=== PATIENT | female | born 1945 | race Caucasian/White ===

== ENCOUNTER 2017-04-04 16:13 | Emergency (ER) | payer MEDICARE ==
[~2017-04-04] VITALS: Ht 157.5 cm; Wt 54.5 kg
[~2017-04-04 16:13] MED LIST: ACID1GRA2 PO; ACLI400A2; ALBU8.5H5 INH; ALPR1TAB6 PO; AMOX1TAB12 PO; ASPI-621 PO; AZIT500T77 PO; BACL-19 PO; CARV3.1212 PO; FLUT1DIS3 INH; GABA300C10 PO; GUAI200T3 PO; IPRA3AMP NEB; LEVO500T33 PO; LISI40TA PO; MAGN400T26 PO; OMEP-110 PO; ONDA4TAB7 PO; OXYC-229 PO; OXYC15TA PO; POLY17PO5 PO; PRED10TA PO; SIMV10TA3 PO; TICA90TA PO; TIOT18CA INH; VANCOMYCIN PO; VERA120T5 PO
[2017-04-04] MEDS ORDERED: AMIT50TA PO (16:39)
[2017-04-04] MEDS ORDERED: HYDR25TA11 PO (16:39)
[2017-04-04] MEDS ORDERED: MOME13HF2 INH (16:39)
[2017-04-04] MEDS ORDERED: LISI40TA PO (16:39)
[2017-04-04] MEDS ORDERED: ALBUTEROL/IPRATROPIUM 2.5MG/0.5MG, 3 ML ONE (16:51)
[2017-04-04] MEDS ORDERED: MORPHINE SULFATE 4 MG/ML, 1ML ONE ×2 (16:54→19:07)
[2017-04-04] MEDS ORDERED: methylPREDNISolone SOD SUCC 125 MG/2 ML ONE (16:54)
[2017-04-04] MEDS: MORPHINE SULFATE 4 MG/ML, 1ML IVPush PRN ×2 (16:58→19:10)
[2017-04-04] MEDS ORDERED: ALBUTEROL/IPRATROPIUM 2.5MG/0.5MG, 3 ML NPPB ONE (17:00)
[2017-04-04] MEDS ORDERED: SODIUM CHLORIDE 0.9% 1,000ML IVBOLUS ONE (17:00)
[2017-04-04] MEDS ORDERED: SODIUM CHLORIDE FLUSH 10ML SYR IVF ONE (17:00)
[2017-04-04] MEDS ORDERED: methylPREDNISolone SOD SUCC 125 MG/2 ML IVP ONE (17:00)
[2017-04-04] MEDS ORDERED: CEFTRIAXONE PMX 1GM/50ML 50 ML ONE (17:28)
[2017-04-04 17:29] LABS: BLOOD UREA NITROGEN 14 mg/dL (7-18)
[2017-04-04] MEDS ORDERED: AZITHROMYCIN 500 MG in SODIUM CHLORIDE 0.9% 250 ML IV ONE (17:30)
[2017-04-04] MEDS ORDERED: CEFTRIAXONE 1,000 MG in SODIUM CHLORIDE 0.9% 50 ML IV ONE (17:30)
[2017-04-04 17:35] LABS: ASPARTATE AMINO TRANSFERASE 9 U/L (15-37); IS PT STATUS REG ER OR PRE ER? YES
[2017-04-04] MEDS ORDERED: CEFTRIAXONE PMX 1GM/50ML 50 ML IV ONE (18:00)
[2017-04-04 19:44] VITALS: BP 148/52
[2017-04-04] MEDS ORDERED: OMNIPAQUE 350 MG/ML, 100ML BOTTLE ONE (19:49)
== END 2017-04-04 23:07 | disposition home or self-care (01) ==
LOC: ED 22:55
DX: J15.9 Unspecified bacterial pneumonia (principal); J44.1 Chronic obstructive pulmonary disease with (acute) exacerbation; F11.10 Opioid abuse, uncomplicated; E78.5 Hyperlipidemia, unspecified; I10 Essential (primary) hypertension; F17.210 Nicotine dependence, cigarettes, uncomplicated
CPT/HCPCS: 36415; 71010; 71275; 80053; 83605; 83880; 84484; 85025; 85610; 85730; 87040; 93005; 94640; 96361; 96365; 96366; 96368; 96375; 99285; J0456; J0696; J2930; J7030; J7050; Q9967; J7620

== ENCOUNTER 2017-05-31 19:26 | Inpatient (IN) | payer MEDICARE ==
[~2017-05-31] VITALS: Ht 167.6 cm; Wt 51.3 kg
[~2017-05-31 19:26] MED LIST changes: +AMIT50TA PO; +HYDR25TA11 PO; +MOME13HF2 INH
[2017-05-31] MEDS ORDERED: SODIUM CHLORIDE 0.9% 1,000ML IVBOLUS ONE (20:00)
[2017-05-31] MEDS ORDERED: SODIUM CHLORIDE FLUSH 10ML SYR IVF ONE (20:00)
[2017-05-31] MEDS ORDERED: FAMOTIDINE 20 MG/2 ML IVP ONE (20:00)
[2017-05-31 20:15] LABS: HEMATOCRIT 30.4 % (34.6-47.8); WHITE BLOOD COUNT 9.7 x10^3/uL (3.4-10)
[2017-05-31] MEDS ORDERED: FAMOTIDINE 20 MG/2 ML ONE (20:15)
[2017-05-31 20:23] LABS: ASPARTATE AMINO TRANSFERASE 15 U/L (15-37); BLOOD UREA NITROGEN 14 mg/dL (7-18)
[2017-05-31] MEDS ORDERED: OMNIPAQUE 350 MG/ML, 100ML BOTTLE ONE (21:21)
[2017-06-01] MEDS ORDERED: [UNRECOGNIZED DRUG - OTHER] INH PRN
[2017-06-01] MEDS ORDERED: MOMETASONE INH PRN
[2017-06-01] MEDS ORDERED: POLYETHYLENE GLYCOL 17 GM PACKET PO PRN
[2017-06-01] MEDS ORDERED: FORMOTEROL INH PRN
[2017-06-01] MEDS ORDERED: BISACODYL 10 MG SUPP PR PRN
[2017-06-01] MEDS ORDERED: ACETAMINOPHEN 325 MG TABLET PO PRN
[2017-06-01 00:13] VITALS: BP 170/77
[2017-06-01] MEDS: ONDANSETRON 2MG/ML, 2ML IVPush PRN ×2 (00:16→07:18)
[2017-06-01] MEDS: NICOTINE 21 MG/24 HR PATCH.TD24 TD SCH (00:43)
[2017-06-01] MEDS: CARVEDILOL 3.125 MG TABLET PO SCH ×3 (00:44→21:05)
[2017-06-01] MEDS: AMITRIPTYLINE 50 MG TABLET PO SCH ×2 (00:44→21:05)
[2017-06-01] MEDS: LISINOPRIL 20 MG TABLET PO SCH ×3 (00:44→21:05)
[2017-06-01] MEDS: SIMVASTATIN 40 MG TABLET PO SCH ×2 (00:44→21:07)
[2017-06-01] MEDS: HEPARIN 5,000 UNITS/ML, 1ML SQ SCH ×3 (00:45→16:57)
[2017-06-01] MEDS: SODIUM CHLORIDE FLUSH 10ML SYR IVF SCH ×3 (00:53→21:05)
[2017-06-01] MEDS: morphine SULFATE 10 MG/ML, 1ML IVPush PRN ×3 (00:53→08:37)
[2017-06-01 02:43] VITALS: BP 171/79
[2017-06-01] MEDS ORDERED: ALBUTEROL/IPRATROPIUM 2.5MG/0.5MG, 3 ML NPPB PRN (03:00)
[2017-06-01 06:08] LABS: HEMATOCRIT 32.2 % (34.6-47.8); HEMOGLOBIN 10.6 g/dL (11.7-16.4)
[2017-06-01 06:25] LABS: ASPARTATE AMINO TRANSFERASE 15 U/L (15-37); BLOOD UREA NITROGEN 11 mg/dL (7-18)
[2017-06-01 08:00] VITALS: BP 159/81
[2017-06-01] MEDS: ALBUTEROL/IPRATROPIUM 2.5MG/0.5MG, 3 ML NPPB SCH ×2 (09:00→21:00)
[2017-06-01] MEDS: SENNA/DOCUSATE TABLET PO SCH (09:26)
[2017-06-01] MEDS: ASPIRIN 81 MG TABLET EC PO SCH (09:27)
[2017-06-01] MEDS: CEFTRIAXONE PMX 2GM/50ML 50 ML IV SCH (12:25)
[2017-06-01] MEDS: KETOROLAC 30 MG/1 ML IVPush PRN ×2 (12:25→18:16)
[2017-06-01] MEDS: ONDANSETRON 2MG/ML, 2ML IVPush SCH ×2 (12:26→16:57)
[2017-06-01 15:17] VITALS: BP 175/83
[2017-06-01] MEDS: HYDROmorphone 1 MG/ML, 1ML IV PRN ×2 (15:28→21:56)
[2017-06-01 19:35] VITALS: BP 151/83
[2017-06-02] MEDS: HEPARIN 5,000 UNITS/ML, 1ML SQ SCH ×4 (00:19→23:20)
[2017-06-02] MEDS: ONDANSETRON 2MG/ML, 2ML IVPush SCH ×4 (00:20→20:54)
[2017-06-02] MEDS: NICOTINE 21 MG/24 HR PATCH.TD24 TD SCH ×2 (00:20→23:20)
[2017-06-02] MEDS: KETOROLAC 30 MG/1 ML IVPush PRN ×2 (00:20→05:25)
[2017-06-02 01:24] VITALS: BP 145/80
[2017-06-02 05:09] LABS: HEMATOCRIT 38.2 % (34.6-47.8); HEMOGLOBIN 12.4 g/dL (11.7-16.4); WHITE BLOOD COUNT 11.4 x10^3/uL (3.4-10)
[2017-06-02 05:21] LABS: BLOOD UREA NITROGEN 24 mg/dL (7-18)
[2017-06-02 07:06] VITALS: BP 139/78
[2017-06-02] MEDS: SENNA/DOCUSATE TABLET PO SCH (08:13)
[2017-06-02] MEDS: LISINOPRIL 20 MG TABLET PO SCH ×2 (08:14→20:53)
[2017-06-02] MEDS: ASPIRIN 81 MG TABLET EC PO SCH (08:14)
[2017-06-02] MEDS: CARVEDILOL 3.125 MG TABLET PO SCH ×2 (08:14→20:53)
[2017-06-02] MEDS: HYDROmorphone 1 MG/ML, 1ML IV PRN ×2 (08:14→23:21)
[2017-06-02] MEDS: SODIUM CHLORIDE FLUSH 10ML SYR IVF SCH ×2 (08:18→20:54)
[2017-06-02] MEDS: ALBUTEROL/IPRATROPIUM 2.5MG/0.5MG, 3 ML NPPB SCH ×2 (09:28→19:20)
[2017-06-02] MEDS ORDERED: BISACODYL 10 MG SUPP PR SCH (10:30)
[2017-06-02] MEDS: LORazepam 0.5MG TABLET PO PRN ×2 (12:54→20:53)
[2017-06-02] MEDS: SODIUM CHLORIDE 0.9% 1,000 ML IV SCH ×2 (12:55→20:54)
[2017-06-02] MEDS: CEFTRIAXONE PMX 2GM/50ML 50 ML IV SCH (12:55)
[2017-06-02 16:00] VITALS: BP 135/66
[2017-06-02] MEDS: PROMETHAZINE 12.5 MG SUPP PR PRN (17:15)
[2017-06-02 19:56] VITALS: BP 116/66
[2017-06-02] MEDS: AMITRIPTYLINE 50 MG TABLET PO SCH (20:53)
[2017-06-02] MEDS: SIMVASTATIN 40 MG TABLET PO SCH (20:53)
[2017-06-03] MEDS: ONDANSETRON 2MG/ML, 2ML IVPush SCH ×2 (01:45→08:57)
[2017-06-03 02:50] VITALS: BP 164/82
[2017-06-03] MEDS: HYDROmorphone 1 MG/ML, 1ML IV PRN ×2 (02:54→06:03)
[2017-06-03] MEDS: SODIUM CHLORIDE 0.9% 1,000 ML IV SCH ×2 (04:00→15:14)
[2017-06-03 05:49] LABS: BLOOD UREA NITROGEN 22 mg/dL (7-18)
[2017-06-03 05:57] LABS: HEMATOCRIT 30.5 % (34.6-47.8); WHITE BLOOD COUNT 9.2 x10^3/uL (3.4-10)
[2017-06-03 08:00] VITALS: BP 150/75
[2017-06-03] MEDS: HEPARIN 5,000 UNITS/ML, 1ML SQ SCH (08:55)
[2017-06-03] MEDS: CARVEDILOL 3.125 MG TABLET PO SCH (08:55)
[2017-06-03] MEDS: LORazepam 0.5MG TABLET PO PRN (08:56)
[2017-06-03] MEDS: LISINOPRIL 20 MG TABLET PO SCH (08:56)
[2017-06-03] MEDS: ASPIRIN 81 MG TABLET EC PO SCH (08:56)
[2017-06-03] MEDS: SENNA/DOCUSATE TABLET PO SCH (08:56)
[2017-06-03] MEDS: SODIUM CHLORIDE FLUSH 10ML SYR IVF SCH (08:57)
[2017-06-03] MEDS: ALBUTEROL/IPRATROPIUM 2.5MG/0.5MG, 3 ML NPPB SCH (09:15)
[2017-06-03] MEDS ORDERED: ONDANSETRON ODT 4 MG PO PRN (09:30)
[2017-06-03] MEDS ORDERED: HYDROcodone/APAP 5/325 TABLET PO PRN (09:30)
[2017-06-03 14:45] VITALS: BP 152/84
[2017-06-03] MEDS: PROMETHAZINE 12.5 MG SUPP PR PRN (15:14)
[2017-06-03] MEDS ORDERED: NICO1PAT5 TD (15:34)
[2017-06-03] MEDS ORDERED: ONDA4TAB13 PO (16:13)
[2017-06-03] MEDS ORDERED: HYDR-3240 PO (16:13)
== END 2017-06-03 17:21 | disposition home or self-care (01) | DRG 393 ==
LOC: ED 23:00 → EDIP 23:07 → 3NE 06-01
DX: K55.9 Vascular disorder of intestine, unspecified (principal); N17.0 Acute kidney failure with tubular necrosis; J96.10 Chronic respiratory failure, unspecified whether with hypoxia or hypercapnia; E44.1 Mild protein-calorie malnutrition; E87.1 Hypo-osmolality and hyponatremia; Z68.1 Body mass index [BMI] 19.9 or less, adult; J84.10 Pulmonary fibrosis, unspecified; J44.9 Chronic obstructive pulmonary disease, unspecified; D64.9 Anemia, unspecified; E78.5 Hyperlipidemia, unspecified; F17.210 Nicotine dependence, cigarettes, uncomplicated; F41.9 Anxiety disorder, unspecified; G89.29 Other chronic pain; I10 Essential (primary) hypertension; I70.0 Atherosclerosis of aorta; I73.9 Peripheral vascular disease, unspecified; K59.00 Constipation, unspecified; M19.90 Unspecified osteoarthritis, unspecified site; I25.2 Old myocardial infarction; Z90.710 Acquired absence of both cervix and uterus; Z71.6 Tobacco abuse counseling; Z86.19 Personal history of other infectious and parasitic diseases; Z86.79 Personal history of other diseases of the circulatory system; Z80.9 Family history of malignant neoplasm, unspecified
CPT/HCPCS: 36415; 74177; 74181; 76770; 80048; 80053; 80061; 81001; 83690; 85025; 85610; 85730; 87040; 87086; 93922; 93925; 94640; 96361; 96374; J0696; J1170; J1644; J1885; J2405; J7620; Q9967; J2270; J7030; Q0177; S0028

== ENCOUNTER 2017-07-21 12:36 | Inpatient (IN) | payer MEDICARE ==
[~2017-07-21] VITALS: Ht 157.5 cm; Wt 53.0 kg
[~2017-07-21 12:36] MED LIST changes: -ACID1GRA2 PO; +ACID1GRA3 PO; +AZIT500T5 PO; -AZIT500T77 PO; +HYDR-3240 PO; -LEVO500T33 PO; +LEVO500T47 PO; +NICO-487 TD; +ONDA4TAB13 PO; -OXYC-229 PO; +OXYC-307 PO
[2017-07-21] MEDS ORDERED: SODIUM CHLORIDE FLUSH 10ML SYR IVF ONE (13:00)
[2017-07-21] MEDS ORDERED: NITROGLYCERIN SINGLE TAB 0.4 MG SL PRN (13:00)
[2017-07-21] MEDS ORDERED: NITROGLYCERIN SINGLE TAB 0.4 MG SL ONE (13:01)
[2017-07-21 13:14] LABS: HEMATOCRIT 33.6 % (34.6-47.8); HEMOGLOBIN 11.1 g/dL (11.7-16.4); WHITE BLOOD COUNT 11.2 x10^3/uL (3.4-10)
[2017-07-21 13:23] LABS: BLOOD UREA NITROGEN 12 mg/dL (7-18)
[2017-07-21 13:28] LABS: IS PT STATUS REG ER OR PRE ER? YES
[2017-07-21] MEDS ORDERED: predniSONE 50MG TABLET PO STA (13:32)
[2017-07-21] MEDS ORDERED: NITROGLYCERIN OINT 2%, 1GM TP ONE ×2 (13:53→14:00)
[2017-07-21] MEDS ORDERED: LABETALOL 5MG/ML, 20ML IVPush PRN (14:30)
[2017-07-21] MEDS ORDERED: LORazepam 0.5MG TABLET PO PRN (14:30)
[2017-07-21] MEDS ORDERED: FLUTICASONE/VILANTEROL 100-25MCG/INH INH PRN (14:30)
[2017-07-21] MEDS ORDERED: ONDANSETRON ODT 4 MG PO PRN (14:30)
[2017-07-21] MEDS ORDERED: ONDANSETRON 2MG/ML, 2ML IVPush PRN (14:30)
[2017-07-21] MEDS ORDERED: POLYETHYLENE GLYCOL 17 GM PACKET PO PRN (14:30)
[2017-07-21] MEDS ORDERED: morphine SULFATE 10 MG/ML, 1ML IVPush PRN (14:30)
[2017-07-21] MEDS ORDERED: DOCUSATE 100 MG CAPSULE PO PRN (14:30)
[2017-07-21] MEDS ORDERED: BISACODYL 10 MG SUPP PR PRN (14:30)
[2017-07-21] MEDS ORDERED: ACETAMINOPHEN 325 MG TABLET PO PRN (14:30)
[2017-07-21 15:36] VITALS: BP 175/80
[2017-07-21] MEDS ORDERED: MAGNESIUM SULFATE PMX 4GM/100M 100 ML IV ONE (16:30)
[2017-07-21] MEDS: SODIUM CHLORIDE 0.9% 1,000 ML IV SCH (17:16)
[2017-07-21 17:20] LABS: PATH.CAST-FLAG NOT PRESENT; SPERM-FLAG NOT PRESENT; SRC-FLAG NOT PRESENT; XTAL-FLAG NOT PRESENT; YLC-FLAG NOT PRESENT
[2017-07-21] MEDS: GUAIFENESIN/DM 200-20MG, 10ML UDC PO PRN (17:24)
[2017-07-21 17:25] VITALS: BP 169/75
[2017-07-21] MEDS: ENOXAPARIN 40 MG/0.4 ML SQ SCH (17:25)
[2017-07-21] MEDS ORDERED: CARV12.543 PO (18:10)
[2017-07-21] MEDS ORDERED: FLU VACC QS2017-18 (36MOS+) UP/PF 0.5 ML IM-VACC ONE (19:00)
[2017-07-21 19:39] VITALS: BP 109/62
[2017-07-21 19:52] LABS: IS PT STATUS REG ER OR PRE ER? NO
[2017-07-21] MEDS: methylPREDNISolone SOD SUCC 125 MG/2 ML IVPush SCH (20:09)
[2017-07-21] MEDS: CARVEDILOL 3.125 MG TABLET PO SCH (20:09)
[2017-07-21] MEDS: AMITRIPTYLINE 50 MG TABLET PO SCH (20:10)
[2017-07-21] MEDS: DOXYCYCLINE 100MG TABLET PO SCH (20:11)
[2017-07-21] MEDS: LISINOPRIL 20 MG TABLET PO SCH (20:11)
[2017-07-21] MEDS: SIMVASTATIN 40 MG TABLET PO SCH (20:12)
[2017-07-21] MEDS: ALBUTEROL/IPRATROPIUM 2.5MG/0.5MG, 3 ML NPPB SCH (22:30)
[2017-07-22 01:30] VITALS: BP 145/67
[2017-07-22 01:49] LABS: IS PT STATUS REG ER OR PRE ER? NO
[2017-07-22] MEDS: methylPREDNISolone SOD SUCC 125 MG/2 ML IVPush SCH ×3 (01:58→17:43)
[2017-07-22] MEDS: SODIUM CHLORIDE 0.9% 1,000 ML IV SCH (03:32)
[2017-07-22 05:53] LABS: HEMATOCRIT 33.5 % (34.6-47.8); HEMOGLOBIN 11.3 g/dL (11.7-16.4); WHITE BLOOD COUNT 6.8 x10^3/uL (3.4-10)
[2017-07-22 06:09] LABS: BLOOD UREA NITROGEN 17 mg/dL (7-18)
[2017-07-22 07:00] VITALS: BP 176/67
[2017-07-22] MEDS: ALBUTEROL/IPRATROPIUM 2.5MG/0.5MG, 3 ML NPPB SCH ×4 (08:00→19:35)
[2017-07-22] MEDS: GUAIFENESIN/DM 200-20MG, 10ML UDC PO PRN ×2 (09:02→20:08)
[2017-07-22] MEDS: LISINOPRIL 20 MG TABLET PO SCH ×3 (09:04→20:10)
[2017-07-22] MEDS: DOXYCYCLINE 100MG TABLET PO SCH ×2 (09:04→20:07)
[2017-07-22] MEDS: CARVEDILOL 3.125 MG TABLET PO SCH ×2 (09:04→20:07)
[2017-07-22] MEDS: ASPIRIN 81 MG TABLET EC PO SCH (09:06)
[2017-07-22] MEDS ORDERED: OXYC15TA PO (11:30)
[2017-07-22] MEDS: OXYcodone IR 5MG TABLET PO PRN (12:01)
[2017-07-22 14:12] VITALS: BP 142/64
[2017-07-22] MEDS: ENOXAPARIN 40 MG/0.4 ML SQ SCH (14:19)
[2017-07-22 19:11] VITALS: BP 134/61
[2017-07-22] MEDS: AMITRIPTYLINE 50 MG TABLET PO SCH (20:07)
[2017-07-22] MEDS: SIMVASTATIN 40 MG TABLET PO SCH (20:08)
[2017-07-23] MEDS: methylPREDNISolone SOD SUCC 125 MG/2 ML IVPush SCH ×2 (00:38→09:00)
[2017-07-23 02:00] VITALS: BP 131/61
[2017-07-23 06:45] VITALS: BP 153/72
[2017-07-23] MEDS: OXYcodone IR 5MG TABLET PO PRN (06:53)
[2017-07-23] MEDS: ALBUTEROL/IPRATROPIUM 2.5MG/0.5MG, 3 ML NPPB SCH (07:45)
[2017-07-23] MEDS: CARVEDILOL 3.125 MG TABLET PO SCH (09:00)
[2017-07-23] MEDS: ASPIRIN 81 MG TABLET EC PO SCH (09:00)
[2017-07-23] MEDS: DOXYCYCLINE 100MG TABLET PO SCH (09:00)
[2017-07-23] MEDS ORDERED: DOXY100T PO (09:20)
== END 2017-07-23 13:24 | disposition home or self-care (01) | DRG 189 ==
LOC: ED 13:31 → EDIP 13:32 → ED 13:42 → 5SO 15:31
PROVIDERS: ADMIT Hospitalist; ATTEND Hospitalist
DX: J96.21 Acute and chronic respiratory failure with hypoxia (principal); J44.1 Chronic obstructive pulmonary disease with (acute) exacerbation; J84.10 Pulmonary fibrosis, unspecified; Z99.81 Dependence on supplemental oxygen; D64.9 Anemia, unspecified; I10 Essential (primary) hypertension; E78.5 Hyperlipidemia, unspecified; F17.200 Nicotine dependence, unspecified, uncomplicated; I25.2 Old myocardial infarction; I73.9 Peripheral vascular disease, unspecified; M19.90 Unspecified osteoarthritis, unspecified site; Z79.82 Long term (current) use of aspirin; Z86.19 Personal history of other infectious and parasitic diseases; Z87.01 Personal history of pneumonia (recurrent); G89.29 Other chronic pain; Z90.710 Acquired absence of both cervix and uterus
CPT/HCPCS: 36415; 71010; 80048; 81001; 82040; 83735; 84100; 84145; 84484; 85025; 87086; 90686; 93005; 93306; 94640; 99285; J1650; J7620; J2270; J2930; J3475; J7030; J7512; Q0177

== ENCOUNTER 2017-08-05 13:13 | Inpatient (IN) | payer MEDICARE ==
[~2017-08-05] VITALS: Ht 165.6 cm; Wt 50.2 kg
[~2017-08-05 13:13] MED LIST changes: +CARV12.543 PO; +DOXY100T PO
[2017-08-05] MEDS ORDERED: SODIUM CHLORIDE FLUSH 10ML SYR IVF ONE (13:30)
[2017-08-05 14:26] LABS: HEMATOCRIT 33.1 % (34.6-47.8); HEMOGLOBIN 10.8 g/dL (11.7-16.4)
[2017-08-05 14:59] LABS: BLOOD UREA NITROGEN 17 mg/dL (7-18)
[2017-08-05 15:06] LABS: IS PT STATUS REG ER OR PRE ER? YES
[2017-08-05] MEDS ORDERED: NS + 20MEQ KCL 1,000 ML IV SCH (15:24)
[2017-08-05] MEDS ORDERED: LORazepam 1MG TABLET PO PRN (15:30)
[2017-08-05] MEDS ORDERED: morphine SULFATE 10 MG/ML, 1ML IVPush PRN (15:30)
[2017-08-05] MEDS ORDERED: ONDANSETRON ODT 4 MG PO PRN (15:30)
[2017-08-05] MEDS ORDERED: MOMETASONE INH PRN (15:30)
[2017-08-05] MEDS ORDERED: TEMPLATE NON-FORMULARY MED. (Albuterol Sulfate** (Albuterol Sulfate Hfa**) 2 PUFF(S)) INH PRN (15:30)
[2017-08-05] MEDS ORDERED: GUAIFENESIN/DM 200-20MG, 10ML UDC PO PRN (15:30)
[2017-08-05] MEDS ORDERED: ACETAMINOPHEN 325 MG TABLET PO PRN (15:30)
[2017-08-05] MEDS ORDERED: FORMOTEROL INH PRN (15:30)
[2017-08-05] MEDS ORDERED: POLYETHYLENE GLYCOL 17 GM PACKET PO PRN (15:30)
[2017-08-05] MEDS ORDERED: [UNRECOGNIZED DRUG - OTHER] INH PRN (15:30)
[2017-08-05] MEDS ORDERED: ALBUTEROL/IPRATROPIUM 2.5MG/0.5MG, 3 ML NEB SCH (15:30)
[2017-08-05] MEDS ORDERED: DOCUSATE 100 MG CAPSULE PO PRN (15:30)
[2017-08-05] MEDS ORDERED: HYDROcodone/APAP 5/325 TABLET PO PRN ×2 (15:30)
[2017-08-05] MEDS ORDERED: ONDANSETRON 2MG/ML, 2ML IVPush PRN (15:30)
[2017-08-05] MEDS ORDERED: ALBUTEROL/IPRATROPIUM 2.5MG/0.5MG, 3 ML ONE (15:46)
[2017-08-05] MEDS ORDERED: ALBUTEROL/IPRATROPIUM 2.5MG/0.5MG, 3 ML NPPB PRN (16:00)
[2017-08-05] MEDS: OXYcodone IR 5MG TABLET PO PRN (18:24)
[2017-08-05] MEDS: ENOXAPARIN 40 MG/0.4 ML SQ SCH (18:24)
[2017-08-05 18:37] VITALS: BP 142/70
[2017-08-05] MEDS: AMITRIPTYLINE 50 MG TABLET PO SCH (21:06)
[2017-08-05] MEDS: CARVEDILOL 12.5 MG TABLET PO SCH (21:06)
[2017-08-05] MEDS: LISINOPRIL 20 MG TABLET PO SCH (21:06)
[2017-08-05] MEDS: FAMOTIDINE 20 MG TABLET PO SCH (21:07)
[2017-08-05] MEDS: SIMVASTATIN 10 MG TABLET PO SCH (21:07)
[2017-08-05] MEDS: DOXYCYCLINE 100 MG in DEXTROSE 5% 250 ML IV SCH ×2 (21:08→23:55)
[2017-08-05] MEDS: methylPREDNISolone SOD SUCC 125 MG/2 ML IVPush SCH (21:08)
[2017-08-05] MEDS: ALBUTEROL/IPRATROPIUM 2.5MG/0.5MG, 3 ML NPPB SCH (22:08)
[2017-08-05] MEDS: CEFTRIAXONE PMX 1GM/50ML 50 ML IV SCH (22:31)
[2017-08-06 02:39] VITALS: BP 116/65
[2017-08-06] MEDS: methylPREDNISolone SOD SUCC 125 MG/2 ML IVPush SCH ×3 (05:50→21:02)
[2017-08-06 06:12] LABS: BLOOD UREA NITROGEN 20 mg/dL (7-18)
[2017-08-06 06:16] LABS: HEMATOCRIT 28.6 % (34.6-47.8); HEMOGLOBIN 9.6 g/dL (11.7-16.4); WHITE BLOOD COUNT 7.3 x10^3/uL (3.4-10)
[2017-08-06 06:58] VITALS: BP 146/67
[2017-08-06] MEDS: ALBUTEROL/IPRATROPIUM 2.5MG/0.5MG, 3 ML NPPB SCH ×5 (07:33→22:00)
[2017-08-06] MEDS: SENNA/DOCUSATE TABLET PO SCH (09:00)
[2017-08-06] MEDS: FAMOTIDINE 20 MG TABLET PO SCH ×2 (09:09→21:01)
[2017-08-06] MEDS: CARVEDILOL 12.5 MG TABLET PO SCH ×2 (09:10→21:02)
[2017-08-06] MEDS: ASPIRIN 81 MG TABLET EC PO SCH (09:10)
[2017-08-06] MEDS: LISINOPRIL 20 MG TABLET PO SCH (09:10)
[2017-08-06] MEDS: DOXYCYCLINE 100 MG in DEXTROSE 5% 250 ML IV SCH ×2 (11:44→23:23)
[2017-08-06] MEDS: OXYcodone IR 5MG TABLET PO PRN ×2 (13:37→21:02)
[2017-08-06] MEDS ORDERED: GUAIFENESIN/DM 100-10MG, 5ML UDC PO PRN (14:00)
[2017-08-06 14:14] VITALS: BP 169/80
[2017-08-06 14:43] VITALS: BP 193/80
[2017-08-06] MEDS ORDERED: hydrALAzine 20 MG/ML, 1ML IV PRN ×2 (15:00→21:00)
[2017-08-06] MEDS: AMLODIPINE 5 MG TABLET PO SCH ×2 (15:00→21:00)
[2017-08-06] MEDS: LACTOBACILLUS CHEW TABLET PO SCH ×2 (17:52→21:01)
[2017-08-06] MEDS: ENOXAPARIN 40 MG/0.4 ML SQ SCH (17:52)
[2017-08-06 18:25] VITALS: BP 167/70
[2017-08-06] MEDS ORDERED: ACETAMINOPHEN 325 MG TABLET PO PRN (21:00)
[2017-08-06] MEDS ORDERED: DOCUSATE 100 MG CAPSULE PO PRN (21:00)
[2017-08-06] MEDS ORDERED: ONDANSETRON ODT 4 MG PO PRN (21:00)
[2017-08-06] MEDS ORDERED: ONDANSETRON 2MG/ML, 2ML IVPush PRN (21:00)
[2017-08-06] MEDS ORDERED: POLYETHYLENE GLYCOL 17 GM PACKET PO PRN (21:00)
[2017-08-06] MEDS: SIMVASTATIN 10 MG TABLET PO SCH (21:00)
[2017-08-06] MEDS: AMITRIPTYLINE 50 MG TABLET PO SCH (21:02)
[2017-08-06] MEDS: CEFTRIAXONE PMX 1GM/50ML 50 ML IV SCH (22:31)
[2017-08-07 02:00] VITALS: BP 119/67
[2017-08-07] MEDS: methylPREDNISolone SOD SUCC 125 MG/2 ML IVPush SCH ×3 (05:00→21:21)
[2017-08-07 06:22] LABS: HEMATOCRIT 30.9 % (34.6-47.8); HEMOGLOBIN 10.3 g/dL (11.7-16.4)
[2017-08-07 06:34] LABS: BLOOD UREA NITROGEN 23 mg/dL (7-18)
[2017-08-07] MEDS: ALBUTEROL/IPRATROPIUM 2.5MG/0.5MG, 3 ML NPPB SCH ×5 (07:30→22:00)
[2017-08-07] MEDS ORDERED: MAGNESIUM SULFATE PMX 2GM/50ML 50 ML IV ONE (08:00)
[2017-08-07 08:38] VITALS: BP 130/71
[2017-08-07] MEDS: SENNA/DOCUSATE TABLET PO SCH (09:00)
[2017-08-07] MEDS: LACTOBACILLUS CHEW TABLET PO SCH ×3 (10:04→21:22)
[2017-08-07] MEDS: CARVEDILOL 12.5 MG TABLET PO SCH ×2 (10:04→21:23)
[2017-08-07] MEDS: ASPIRIN 81 MG TABLET EC PO SCH (10:04)
[2017-08-07] MEDS: AMLODIPINE 5 MG TABLET PO SCH ×2 (10:04→21:00)
[2017-08-07] MEDS: FAMOTIDINE 20 MG TABLET PO SCH ×2 (10:04→21:22)
[2017-08-07] MEDS: LISINOPRIL 20 MG TABLET PO SCH (10:05)
[2017-08-07] MEDS: MAGNESIUM CHLORIDE 64 MG TABLET.DR PO SCH ×2 (10:05→21:22)
[2017-08-07] MEDS: DOXYCYCLINE 100 MG in DEXTROSE 5% 250 ML IV SCH (12:32)
[2017-08-07 13:14] VITALS: BP 135/67
[2017-08-07] MEDS: OXYcodone IR 5MG TABLET PO PRN (14:48)
[2017-08-07] MEDS: HYDROcodone/APAP 5/325 TABLET PO PRN ×2 (17:19→21:22)
[2017-08-07] MEDS: ENOXAPARIN 40 MG/0.4 ML SQ SCH (17:20)
[2017-08-07 20:00] VITALS: BP 107/51
[2017-08-07] MEDS: SIMVASTATIN 10 MG TABLET PO SCH (21:22)
[2017-08-07] MEDS: AMITRIPTYLINE 50 MG TABLET PO SCH (21:22)
[2017-08-07] MEDS: CEFTRIAXONE PMX 1GM/50ML 50 ML IV SCH (22:47)
[2017-08-08] MEDS: DOXYCYCLINE 100 MG in DEXTROSE 5% 250 ML IV SCH ×2 (00:52→11:30)
[2017-08-08 02:00] VITALS: BP 110/41
[2017-08-08] MEDS: methylPREDNISolone SOD SUCC 125 MG/2 ML IVPush SCH ×2 (05:34→13:00)
[2017-08-08] MEDS: ALBUTEROL/IPRATROPIUM 2.5MG/0.5MG, 3 ML NPPB SCH ×3 (06:50→14:35)
[2017-08-08 07:36] VITALS: BP 106/64
[2017-08-08] MEDS: SENNA/DOCUSATE TABLET PO SCH (09:00)
[2017-08-08] MEDS: LISINOPRIL 20 MG TABLET PO SCH (10:29)
[2017-08-08] MEDS: AMLODIPINE 5 MG TABLET PO SCH (10:29)
[2017-08-08] MEDS: CARVEDILOL 12.5 MG TABLET PO SCH (10:29)
[2017-08-08] MEDS: ASPIRIN 81 MG TABLET EC PO SCH (10:29)
[2017-08-08] MEDS: LACTOBACILLUS CHEW TABLET PO SCH ×2 (10:29→16:37)
[2017-08-08] MEDS: OXYcodone IR 5MG TABLET PO PRN (10:29)
[2017-08-08] MEDS: MAGNESIUM CHLORIDE 64 MG TABLET.DR PO SCH (10:29)
[2017-08-08] MEDS: FAMOTIDINE 20 MG TABLET PO SCH (10:29)
[2017-08-08] MEDS: HYDROcodone/APAP 5/325 TABLET PO PRN (11:49)
[2017-08-08] MEDS ORDERED: PRED5TAB PO (12:49)
[2017-08-08] MEDS ORDERED: DOCU-131 PO (12:49)
[2017-08-08] MEDS ORDERED: IPRA3AMP NPPB (12:49)
[2017-08-08] MEDS ORDERED: LISI-170 PO (12:49)
[2017-08-08] MEDS ORDERED: MOME13HF INH (12:49)
[2017-08-08] MEDS ORDERED: AMLO5TAB2 PO (12:49)
[2017-08-08] MEDS ORDERED: ACID1TAB7 PO (12:49)
[2017-08-08] MEDS ORDERED: METR500T PO (15:54)
[2017-08-08] MEDS ORDERED: metroNIDAZOLE 500 MG TABLET PO SCH (16:00)
[2017-08-08 16:35] VITALS: BP 164/60
== END 2017-08-08 16:58 | disposition home or self-care (01) | DRG 871 ==
LOC: ED 13:55 → EDIP 15:04 → SUATTDRO 15:13 → 3NE 15:56
PROVIDERS: ADMIT Internal Medicine; ATTEND Internal Medicine
DX: A41.9 Sepsis, unspecified organism (principal); J18.9 Pneumonia, unspecified organism; J96.20 Acute and chronic respiratory failure, unspecified whether with hypoxia or hypercapnia; J44.1 Chronic obstructive pulmonary disease with (acute) exacerbation; J84.10 Pulmonary fibrosis, unspecified; I10 Essential (primary) hypertension; E78.5 Hyperlipidemia, unspecified; D72.829 Elevated white blood cell count, unspecified; F17.200 Nicotine dependence, unspecified, uncomplicated; I73.9 Peripheral vascular disease, unspecified; M19.90 Unspecified osteoarthritis, unspecified site; Z86.19 Personal history of other infectious and parasitic diseases; I25.2 Old myocardial infarction; Z87.01 Personal history of pneumonia (recurrent); Z98.1 Arthrodesis status; Z71.6 Tobacco abuse counseling; Z90.710 Acquired absence of both cervix and uterus; Z90.89 Acquired absence of other organs
CPT/HCPCS: 36415; 71010; 80048; 82040; 83735; 84484; 85025; 87040; 87324; 87493; 93005; 94640; 99285; J0696; J1650; J3480; J7060; J7620; J2930; J3475; J7512; Q0177

== ENCOUNTER 2017-09-30 13:31 | Inpatient (IN) | payer MEDICARE ==
[~2017-09-30] VITALS: Ht 157.5 cm; Wt 55.7 kg
[~2017-09-30 13:31] MED LIST changes: +ACID1TAB7 PO; +AMLO5TAB2 PO; +DOCU-131 PO; +IPRA3AMP NPPB; +LISI-170 PO; +METR500T PO; +MOME13HF INH; +PRED5TAB PO
[2017-09-30] MEDS ORDERED: CITA20TA5 PO (13:49)
[2017-09-30] MEDS ORDERED: HYDR-3276 PO (13:49)
[2017-09-30] MEDS ORDERED: SODIUM CHLORIDE 0.9% 1,000 ML IV ONE (14:47)
[2017-09-30] MEDS ORDERED: HYDROmorphone 2 MG/ML, 1ML ONE ×3 (14:51→20:01)
[2017-09-30] MEDS ORDERED: ONDANSETRON 2MG/ML, 2ML ONE (14:51)
[2017-09-30] MEDS ORDERED: ONDANSETRON 2MG/ML, 2ML IVPush ONE (15:00)
[2017-09-30] MEDS ORDERED: SODIUM CHLORIDE FLUSH 10ML SYR IVF ONE (15:00)
[2017-09-30] MEDS: HYDROmorphone 1 MG/ML, 1ML IVPush PRN ×2 (15:03→16:16)
[2017-09-30 15:14] LABS: BASOPHILS # (AUTO) 0.02 x10^3/uL (0-0.1); BASOPHILS % (AUTO) 0 % (0-1); EOSINOPHILS # (AUTO) 0.08 x10^3/uL (0-0.4); EOSINOPHILS % (AUTO) 1 % (1-7); HCT (SEDRATE) 30.2 % (34.6-47.8); LYMPHOCYTES # (AUTO) 1.18 x10^3/uL (1-3.4); LYMPHOCYTES % (AUTO) 8 % (22-44); MD NO; MEAN CORPUSCULAR HEMOGLOBIN 29.5 pg (27.0-34.8); MEAN CORPUSCULAR HGB CONC 33.2 g/dL (32.4-35.8); MEAN CORPUSCULAR VOLUME 88.9 fL (80-100); MONOCYTES # (AUTO) 1.34 x10^3/uL (0.2-0.8); MONOCYTES % (AUTO) 9 % (2-9); NEUTROPHILS # (AUTO) 12.63 x10^3/uL (1.8-6.8); NEUTROPHILS % (AUTO) 83 % (42-75); PLATELET COUNT 219 x10^3/uL (130-400); RED CELL DISTRIBUTION WIDTH 13.9 % (9.6-15.2)
[2017-09-30 16:09] LABS: SEDIMENTATION RATE 112 mm/hr (0-20)
[2017-09-30 17:10] LABS: ANION GAP 10 mmol/L (5-15); CALCIUM 7.3 mg/dL (8.5-10.1); CHLORIDE 101 mmol/L (98-107); CREATININE 0.78 mg/dL (0.55-1.02)
[2017-09-30] MEDS ORDERED: DIAZEPAM 5 MG/ML, 2ML IVPush ONE (17:30)
[2017-09-30] MEDS ORDERED: GADOBUTROL 7.5 MMOL/7.5 ML PFS ONE (18:51)
[2017-09-30] MEDS ORDERED: HYDROmorphone 2 MG/ML, 1ML IVPush ONE (20:00)
[2017-09-30] MEDS ORDERED: KETOROLAC 30 MG/1 ML IVPush ONE (20:00)
[2017-09-30] MEDS ORDERED: KETOROLAC 30 MG/1 ML ONE (20:01)
[2017-09-30 20:57] LABS: MICROSCOPIC NOT IND
[2017-09-30 21:03] LABS: CULTURE INDICATED? NO
[2017-09-30] MEDS ORDERED: ACETAMINOPHEN 325 MG TABLET PO PRN (22:00)
[2017-09-30] MEDS ORDERED: ONDANSETRON ODT 4 MG PO PRN (22:00)
[2017-09-30 23:00] VITALS: BP 134/67
[2017-10-01 00:04] LABS: TROPONIN I < 0.015 ng/mL (0.000-0.045)
[2017-10-01] MEDS: SODIUM CHLORIDE 0.9% 1,000 ML IV SCH ×3 (01:13→21:29)
[2017-10-01] MEDS: AMITRIPTYLINE 50 MG TABLET PO SCH ×2 (01:14→21:30)
[2017-10-01] MEDS: DEXAMETHASONE 4 MG/ML, 1ML IVPush SCH ×4 (01:14→21:30)
[2017-10-01 04:39] VITALS: BP 140/66
[2017-10-01 05:05] LABS: ALBUMIN 2.7 g/dL (3.4-5.0); ANION GAP 11 mmol/L (5-15); CALCIUM 7.2 mg/dL (8.5-10.1); CHLORIDE 107 mmol/L (98-107)
[2017-10-01 05:08] LABS: ALANINE AMINOTRANSFERASE 10 U/L (12-78); BILIRUBIN,TOTAL 0.4 mg/dL (0.2-1.0); CHOLESTEROL, TOTAL 128 mg/dL (140-239); CREATININE 0.92 mg/dL (0.55-1.02); TOTAL PROTEIN 6.7 g/dL (6.4-8.2); TRIGLYCERIDES 102 mg/dL (50-200); TROPONIN I < 0.015 ng/mL (0.000-0.045); VLDL CHOLESTEROL 20 mg/dL (0-25)
[2017-10-01 05:13] LABS: ALKALINE PHOSPHATASE 114 U/L (45-117); CHOL/HDL RATIO 2.6; HDL CHOL % 39 % (28-40); HDL CHOLESTEROL (DIRECT) 50 mg/dL (40-60); LDL CHOLESTEROL,CALCULATED 58 mg/dL (54-169); LDL/HDL RATIO 1.2 (0.5-3.0); THYROID STIMULATING HORMONE 0.378 mIU/L (0.358-3.740)
[2017-10-01 05:25] LABS: BASOPHILS # (AUTO) 0.01 x10^3/uL (0-0.1); BASOPHILS % (AUTO) 0 % (0-1); EOSINOPHILS # (AUTO) 0.04 x10^3/uL (0-0.4); EOSINOPHILS % (AUTO) 0 % (1-7); LYMPHOCYTES # (AUTO) 0.52 x10^3/uL (1-3.4); LYMPHOCYTES % (AUTO) 5 % (22-44); MD NO; MEAN CORPUSCULAR HGB CONC 33.5 g/dL (32.4-35.8); MEAN CORPUSCULAR VOLUME 89.6 fL (80-100); MEAN PLATELET VOLUME 9.5 fL (7.4-10.4); MONOCYTES # (AUTO) 0.27 x10^3/uL (0.2-0.8); MONOCYTES % (AUTO) 3 % (2-9); NEUTROPHILS # (AUTO) 9.06 x10^3/uL (1.8-6.8); NEUTROPHILS % (AUTO) 92 % (42-75); PLATELET COUNT 186 x10^3/uL (130-400); RED BLOOD COUNT 3.05 x10^6/uL (3.82-5.3); RED CELL DISTRIBUTION WIDTH 13.9 % (9.6-15.2)
[2017-10-01 06:22] LABS: HEMOGLOBIN A1C 5.9 % (4.2-6.3)
[2017-10-01 07:15] VITALS: BP 159/72
[2017-10-01] MEDS ORDERED: MAGNESIUM SULFATE PMX 4GM/100M 100 ML IV ONE (07:30)
[2017-10-01] MEDS: ALBUTEROL/IPRATROPIUM 2.5MG/0.5MG, 3 ML NPPB SCH ×4 (07:37→20:15)
[2017-10-01] MEDS: ENOXAPARIN 40 MG/0.4 ML SQ SCH (08:07)
[2017-10-01] MEDS: BISACODYL 10 MG SUPP PR SCH (08:08)
[2017-10-01] MEDS: POLYETHYLENE GLYCOL 17 GM PACKET PO SCH (08:08)
[2017-10-01] MEDS: DOCUSATE 100 MG CAPSULE PO SCH ×3 (08:08→21:29)
[2017-10-01] MEDS: MAGNESIUM CHLORIDE 64 MG TABLET.DR PO SCH ×2 (09:26→21:30)
[2017-10-01 13:27] VITALS: BP 163/74
[2017-10-01] MEDS ORDERED: ALBUTEROL/IPRATROPIUM 2.5MG/0.5MG, 3 ML ONE (14:39)
[2017-10-01] MEDS: METHOCARBAMOL 500 MG TABLET PO SCH ×2 (15:59→21:30)
[2017-10-01] MEDS: GABAPENTIN 100 MG CAPSULE PO SCH ×2 (15:59→21:30)
[2017-10-01 19:19] VITALS: BP 166/73
[2017-10-02 01:07] VITALS: BP 160/79
[2017-10-02] MEDS: DEXAMETHASONE 4 MG/ML, 1ML IVPush SCH ×4 (04:26→18:45)
[2017-10-02] MEDS: SODIUM CHLORIDE 0.9% 1,000 ML IV SCH ×2 (05:59→15:53)
[2017-10-02 07:59] VITALS: BP 179/74
[2017-10-02] MEDS: BISACODYL 10 MG SUPP PR SCH (08:04)
[2017-10-02] MEDS: DOCUSATE 100 MG CAPSULE PO SCH ×3 (08:08→21:18)
[2017-10-02] MEDS: MAGNESIUM CHLORIDE 64 MG TABLET.DR PO SCH ×2 (08:09→21:18)
[2017-10-02] MEDS: METHOCARBAMOL 500 MG TABLET PO SCH ×3 (08:09→21:18)
[2017-10-02] MEDS: ENOXAPARIN 40 MG/0.4 ML SQ SCH (08:09)
[2017-10-02] MEDS: POLYETHYLENE GLYCOL 17 GM PACKET PO SCH (08:09)
[2017-10-02] MEDS: GABAPENTIN 100 MG CAPSULE PO SCH ×3 (08:09→21:18)
[2017-10-02] MEDS: ALBUTEROL/IPRATROPIUM 2.5MG/0.5MG, 3 ML NPPB SCH ×2 (09:00→21:00)
[2017-10-02] MEDS ORDERED: methylPREDNISolone 4mg DOSE PACK PO ONE (09:30)
[2017-10-02] MEDS ORDERED: CITALOPRAM 20 MG TABLET PO SCH (10:00)
[2017-10-02] MEDS ORDERED: HYDROcodone/APAP 5/325 TABLET PO PRN (11:00)
[2017-10-02] MEDS: LISINOPRIL 20 MG TABLET PO SCH (12:05)
[2017-10-02] MEDS: OMEPRAZOLE 20 MG CAPSULE.DR PO SCH (12:05)
[2017-10-02 13:38] VITALS: BP 168/75
[2017-10-02 18:56] VITALS: BP 166/73
[2017-10-02] MEDS ORDERED: SIMVASTATIN 40 MG TABLET PO SCH (21:00)
[2017-10-02] MEDS ORDERED: AMITRIPTYLINE 50 MG TABLET PO SCH (21:00)
[2017-10-02] MEDS: CARVEDILOL 12.5 MG TABLET PO SCH (21:18)
[2017-10-03] MEDS: SODIUM CHLORIDE 0.9% 1,000 ML IV SCH ×2 (00:22→10:45)
[2017-10-03] MEDS: DEXAMETHASONE 4 MG/ML, 1ML IVPush SCH ×4 (00:23→17:31)
[2017-10-03] MEDS: OXYcodone IR 5MG TABLET PO PRN ×2 (00:28→10:44)
[2017-10-03 00:53] VITALS: BP 151/71
[2017-10-03 05:52] LABS: BASOPHILS # (AUTO) 0.01 x10^3/uL (0-0.1); BASOPHILS % (AUTO) 0 % (0-1); EOSINOPHILS % (AUTO) 0 % (1-7); LYMPHOCYTES % (AUTO) 6 % (22-44); MD NO; MEAN CORPUSCULAR HEMOGLOBIN 29.9 pg (27.0-34.8); MEAN CORPUSCULAR HGB CONC 33.9 g/dL (32.4-35.8); MEAN CORPUSCULAR VOLUME 88.1 fL (80-100); MEAN PLATELET VOLUME 9.2 fL (7.4-10.4); MONOCYTES # (AUTO) 0.57 x10^3/uL (0.2-0.8); MONOCYTES % (AUTO) 5 % (2-9); NEUTROPHILS % (AUTO) 89 % (42-75); PLATELET COUNT 213 x10^3/uL (130-400); RED BLOOD COUNT 2.86 x10^6/uL (3.82-5.3); RED CELL DISTRIBUTION WIDTH 14.3 % (9.6-15.2)
[2017-10-03 06:02] LABS: CHLORIDE 110 mmol/L (98-107)
[2017-10-03 06:13] LABS: CALCIUM 8.9 mg/dL (8.5-10.1); CREATININE 0.77 mg/dL (0.55-1.02)
[2017-10-03 06:16] LABS: ANION GAP 7 mmol/L (5-15)
[2017-10-03] MEDS: ALBUTEROL/IPRATROPIUM 2.5MG/0.5MG, 3 ML NPPB SCH (06:49)
[2017-10-03 06:55] VITALS: BP 137/62
[2017-10-03] MEDS: BISACODYL 10 MG SUPP PR SCH (08:13)
[2017-10-03] MEDS: DOCUSATE 100 MG CAPSULE PO SCH ×2 (08:14→16:13)
[2017-10-03] MEDS: OMEPRAZOLE 20 MG CAPSULE.DR PO SCH (08:14)
[2017-10-03] MEDS: CARVEDILOL 12.5 MG TABLET PO SCH (08:15)
[2017-10-03] MEDS: GABAPENTIN 100 MG CAPSULE PO SCH ×2 (08:15→16:13)
[2017-10-03] MEDS: LISINOPRIL 20 MG TABLET PO SCH (08:16)
[2017-10-03] MEDS: ENOXAPARIN 40 MG/0.4 ML SQ SCH (08:16)
[2017-10-03] MEDS: METHOCARBAMOL 500 MG TABLET PO SCH ×2 (08:16→16:13)
[2017-10-03] MEDS: MAGNESIUM CHLORIDE 64 MG TABLET.DR PO SCH (08:16)
[2017-10-03] MEDS: POLYETHYLENE GLYCOL 17 GM PACKET PO SCH (08:18)
[2017-10-03] MEDS ORDERED: ASPIRIN 81 MG TABLET EC PO SCH (09:00)
[2017-10-03] MEDS ORDERED: FLUTICASONE/VILANTEROL 200-25MCG/INH INH SCH (09:00)
[2017-10-03] MEDS ORDERED: MAGNESIUM SULFATE PMX 2GM/50ML 50 ML IV ONE (11:30)
[2017-10-03 12:08] VITALS: BP 155/72
[2017-10-03] MEDS ORDERED: GABA300C10 PO (12:59)
[2017-10-03] MEDS ORDERED: METH8TAB PO (12:59)
[2017-10-03] MEDS ORDERED: METH500T7 PO (12:59)
[2017-10-03] MEDS ORDERED: POLY17PO5 PO (12:59)
[2017-10-03] MEDS ORDERED: OMEPRAZOLE 20 MG CAPSULE.DR PO SCH (21:00)
== END 2017-10-03 17:42 | disposition home or self-care (01) | DRG 551 ==
LOC: ED 15:26 → EDIP 21:14 → 3NE 22:00
PROVIDERS: ADMIT Surgery; ATTEND Surgery
PROC: 0T9B70Z Drainage of Bladder with Drainage Device, Via Natural or Artificial Opening (ICD-10-PCS; principal; 2017-09-30)
DX: M48.02 Spinal stenosis, cervical region (principal); I26.99 Other pulmonary embolism without acute cor pulmonale; J96.11 Chronic respiratory failure with hypoxia; J84.10 Pulmonary fibrosis, unspecified; Z99.81 Dependence on supplemental oxygen; D72.829 Elevated white blood cell count, unspecified; E86.0 Dehydration; J44.9 Chronic obstructive pulmonary disease, unspecified; R33.9 Retention of urine, unspecified; E78.5 Hyperlipidemia, unspecified; F17.210 Nicotine dependence, cigarettes, uncomplicated; G89.4 Chronic pain syndrome; I10 Essential (primary) hypertension; I25.2 Old myocardial infarction; I73.9 Peripheral vascular disease, unspecified; M25.78 Osteophyte, vertebrae; M48.061 Spinal stenosis, lumbar region without neurogenic claudication; M50.323 Other cervical disc degeneration at C6-C7 level; R32 Unspecified urinary incontinence; Z80.1 Family history of malignant neoplasm of trachea, bronchus and lung; Z90.710 Acquired absence of both cervix and uterus; Z98.1 Arthrodesis status; D64.9 Anemia, unspecified; R00.0 Tachycardia, unspecified
CPT/HCPCS: 36415; 70450; 72125; 72156; 72157; 80048; 80053; 80061; 81003; 82550; 83036; 83605; 83735; 84100; 84443; 84484; 85025; 85651; 86140; 87040; 93005; 94640; 96361; 96374; 96375; 96376; A9585; J1100; J1170; J1650; J1885; J2405; J3360; J7620; J3475; J7030; Q0177